=== PATIENT | male | born 1985 | race African-American/Black ===

== ENCOUNTER 2016-12-02 19:06 | Emergency (ER) | payer SELFPAY ==
[~2016-12-02] VITALS: Ht 182.9 cm; Wt 90.7 kg
[2016-12-02 19:10] VITALS: BP 136/94
== END 2016-12-02 22:11 | disposition left against medical advice (07) ==
LOC: ER 19:10
DX: R51 Headache (principal); M54.2 Cervicalgia; Z53.21 Procedure and treatment not carried out due to patient leaving prior to being seen by health care provider; V43.52XA Car driver injured in collision with other type car in traffic accident, initial encounter; Y93.89 Activity, other specified; Y92.89 Other specified places as the place of occurrence of the external cause; Y99.8 Other external cause status